=== PATIENT | male | born 1945 | race Caucasian/White ===

== ENCOUNTER 2024-03-23 10:38 | Inpatient (IN) ==
[2024-03-23 11:01] LABS: ABS Eosinophils 0.1 10^3/uL (0.0-0.5); ABS Lymphocytes 1.1 10^3/uL (1.0-4.8); ABS Monocytes 0.4 10^3/uL (0.0-1.1); Hematocrit 45.9 % (38-53); Hemoglobin 15.6 g/dL (13.2-16.3); Mean Corpuscular Hemoglobin 28.9 pg (27-33); Mean Corpuscular Hgb Conc 33.9 g/dL (31-36); Mean Corpuscular Volume 85.2 fL (80-97); Mean Platelet Volume 7.1 fL (7.5-11.2); Nucleated Red Blood Cells % 0.1 %/100WBC (0.0-0.8); Platelet Count 292 10^3/uL (150-450); Red Blood Count 5.39 10^6/uL (4.06-5.63); Red Cell Distribution Width 14.4 % (12-17); White Blood Count 6.7 10^3/uL (3.6-10.2)
[2024-03-23 11:19] LABS: INR 1.03 (0.83-1.13)
[2024-03-23 11:51] LABS: Albumin 4.3 g/dL (3.2-5.2); Albumin/Globulin Ratio 1.7 (1-3); Calcium 9.9 mg/dL (8.6-10.3); Creatinine, Serum 0.96 mg/dL (0.67-1.17); Globulin 2.5 g/dL (2-4); Potassium 4.5 mmol/L (3.5-5.0); Total Bilirubin 0.5 mg/dL (0.2-1.0); Total Protein 6.8 g/dL (6.4-8.9); eGFR CKD-EPI 80.9 (>60)
[2024-03-23 12:35] LABS: High Sensitivity Troponin 1 Hr 322 pg/mL (<20)
[2024-03-23] MEDS: Aspirin EC 325 mg TAB.EC PO ONE (13:43)
[2024-03-23] MEDS: Heparin 5000 UNITS/ML 1 mL VIAL IV SCH (14:12)
[2024-03-23] MEDS: Heparin DRIP 25,000 UNITS BAG 25,000 UNITS/250 ML BAG IV SCH (14:17)
[2024-03-23 14:29] LABS: High Sensitivity Troponin 3 Hr 325 pg/mL (<20)
[2024-03-23] MEDS: Metoprolol Tartrate 5 mg VIAL 5 ml VIAL (1 mg/ml) IV ONE (14:34)
[2024-03-23 15:34] LABS: Creatinine, Serum 0.9 mg/dL (0.67-1.17); eGFR CKD-EPI 87.4 (>60)
[2024-03-24 06:55] LABS: ABS Basophils 0.1 10^3/uL (0.0-0.1); ABS Eosinophils 0.2 10^3/uL (0.0-0.5); ABS Lymphocytes 1.3 10^3/uL (1.0-4.8); ABS Monocytes 0.4 10^3/uL (0.0-1.1); ABS Neutrophils 2.2 10^3/uL (1.5-7.6); ABS Nucleated RBC 0.01 10^3/ul; Eosinophil % 3.8 %; Hematocrit 43.5 % (38-53); Hemoglobin 15.1 g/dL (13.2-16.3); Lymphocyte % 31.6 %; Mean Corpuscular Hemoglobin 29.5 pg (27-33); Mean Corpuscular Hgb Conc 34.7 g/dL (31-36); Mean Corpuscular Volume 84.9 fL (80-97); Mean Platelet Volume 7.2 fL (7.5-11.2); Nucleated Red Blood Cells % 0.2 %/100WBC (0.0-0.8); Platelet Count 253 10^3/uL (150-450); Red Blood Count 5.12 10^6/uL (4.06-5.63); Red Cell Distribution Width 14.3 % (12-17); White Blood Count 4.2 10^3/uL (3.6-10.2)
[2024-03-24] MEDS: Sulfur Hexaflouride MICROSPHR 25 MG VIAL IV ONE (09:48)
[2024-03-24 13:43] LABS: HDL Cholesterol 43.8 mg/dL
[2024-03-24 19:35] LABS: HDL Cholesterol 46.2 mg/dL
[2024-03-25 06:14] LABS: ABS Eosinophils 0.2 10^3/uL (0.0-0.5); ABS Lymphocytes 1.5 10^3/uL (1.0-4.8); ABS Monocytes 0.4 10^3/uL (0.0-1.1); ABS Neutrophils 3.2 10^3/uL (1.5-7.6); Eosinophil % 3.5 %; Hematocrit 45.1 % (38-53); Hemoglobin 15.2 g/dL (13.2-16.3); Lymphocyte % 28.3 %; Mean Corpuscular Hemoglobin 28.5 pg (27-33); Mean Corpuscular Hgb Conc 33.6 g/dL (31-36); Mean Corpuscular Volume 84.8 fL (80-97); Nucleated Red Blood Cells % 0.1 %/100WBC (0.0-0.8); Platelet Count 262 10^3/uL (150-450); Red Blood Count 5.32 10^6/uL (4.06-5.63); Red Cell Distribution Width 14.2 % (12-17); White Blood Count 5.3 10^3/uL (3.6-10.2)
[2024-03-25 06:48] LABS: Calcium 9.5 mg/dL (8.6-10.3); Creatinine, Serum 0.99 mg/dL (0.67-1.17); Potassium 4.3 mmol/L (3.5-5.0)
[2024-03-25] MEDS ORDERED: Naloxone 0.4 mg VIAL 0.4 mg/ml 1 ml VIAL IV PUSH PRN (11:28)
[2024-03-25] MEDS ORDERED: Flumazenil 0.5 mg/5 ml 0.1 MG/ML 5 ml VIAL IV PRN (11:28)
[2024-03-25] MEDS ORDERED: fentaNYL 100 mcg/2 ml 50 MCG/ML VIAL ONE (11:57)
[2024-03-25] MEDS ORDERED: Midazolam 5 mg/5 ml VIAL 1 mg/ml 5 ml VIAL (5 mg) ONE (11:57)
[2024-03-25] MEDS ORDERED: Bupivacaine 0.5% SDV PF 30ML VIAL ONE (11:57)
[2024-03-25] MEDS ORDERED: Heparin 1,000 UNIT/ML 10 ml (10,000 UNITS) CATHLAB/DIALYSIS ONE (11:57)
[2024-03-25] MEDS ORDERED: Heparin 2 UNITS/ML 1000 mls 2,000 ML IV ONE (11:58)
[2024-03-25] MEDS ORDERED: Iohexol 350 (CONTRAST) 200 ML MDV IV ONE (11:58)
[2024-03-25] MEDS ORDERED: niCARdipine 0.1MG/ML IVPREMIX 20 MG/200 ML BAG IV ONE (11:58)
[2024-03-25] MEDS ORDERED: nitroGLYCERIN DRIP 25,000 MCG/250 ML BTL ONE (11:58)
[2024-03-25] MEDS ORDERED: Heparin 2 UNITS/ML 1000 mls 1,000 ML IV ONE (12:24)
[2024-03-25] MEDS: fentaNYL 100 mcg/2 ml 50 MCG/ML VIAL IV SLOW PU ONE (13:20)
[2024-03-25] MEDS: Midazolam 10 mg/10 ml VIAL 1 mg/ml 10 ml VIAL (10 mg) IV SLOW PU ONE (13:20)
[2024-03-25 16:28] VITALS: BP 130/77
== END 2024-03-25 17:00 | disposition left against medical advice (07) | DRG 282 ==
LOC: EDHOLD 10:38 → ED 10:38 → OBSVTOIN 14:43 → SUATTDRO 14:43 → INTOOBSV 14:43 → MEDTELE 20:08
PROVIDERS: ADMIT Hospitalist; ATTEND Student in an Organized Health Care Education/Training Program